=== PATIENT | female | born 1990 | race Caucasian/White ===

== ENCOUNTER 2021-11-26 14:59 | Emergency (ER) | payer BC, SELFPAY ==
--- NOTE | ~2021-11-26 | CT_ITS ---
EXAMINATION: CT SOFT TISSUE NECK WITH CONTRAST CLINICAL INFORMATION: Pharyngitis. Assess for peritonsillar abscess. COMPARISON: There are no prior studies available for comparison. TECHNIQUE: Following the intravenous administration of 60 mL of Omnipaque 350 intravenous contrast, helical imaging was performed in the axial plane with generation of coronal and sagittal reformatted images. This CT examination was performed using dose optimization techniques as appropriate, variously including the following: *Automated exposure control *Adjustment of mA and/or kV according to patient size (this includes techniques or standardized protocols for targeted exams where dose is matched to indication/reason for exam; i.e. extremities or head) *Use of iterative reconstruction technique DLP: 551 mGy-cm FINDINGS: There is no cervical lymphadenopathy; there are small lymph nodes at multiple levels in the neck bilaterally. The parotid glands are homogeneous in attenuation; there is accessory parotid tissue over the right masseter muscle.. The submandibular glands are normal. There is slight asymmetric fullness of the left palatine tonsils, but no focal areas of fluid or abnormal enhancement are demonstrated. The laryngeal structures are normal. The parapharyngeal fat is preserved. The carotid sheath vasculature opacifies normally. No extra mucosal soft tissue mass or fluid collection is seen. No retropharyngeal fluid collection is seen. The thyroid gland is normal. The superior mediastinum is unremarkable. There is a 3 mm subpleural nodule in the right upper lobe laterally (image [id number], series 3). The mastoid air cells are well-aerated. There is mucosal thickening in the anterior right sphenoid sinus. The temporomandibular joints are normal. There is a small root fragment in the region of the right maxillary 3rd molar tooth. There are no periapical lucencies. There is a right nasal alar ring. There is reversal of normal cervical lordosis which is nonspecific. No acute osseous abnormalities are seen. The imaged portions of the brain parenchyma are unremarkable. CT/CT soft tissue neck w con IMPRESSION: 1. There is slight asymmetric fullness of the palatine tonsils, more prominent on the left, but there is no evidence of a peritonsillar abscess. There is no cervical lymphadenopathy. 2. There is a 3 mm nodule in the right upper lobe. Various management parameters for solitary pulmonary nodules are in the literature. According to the UPDATED 2017 Fleischner Society recommendations, the advised follow-up imaging for solid nodules < 6 mm is: LOW RISK PATIENT: No routine follow-up. HIGH RISK PATIENT: Optional CT at 12 months. Reference: Guidelines for Management of Incidental Pulmonary Nodules Detected on CT Images: From the Fleischner Society 2017.
[2021-11-26 15:45] VITALS: BP 103/71; PULSE 81; RESP 20; TEMP 36.4; O2SAT 95; BMI 29.8
--- NOTE | 2021-11-26 16:49 | ED_ITS ---
HPI - URI/Sore Throat General Chief Complaint: Extremity Problem Stated Complaint: covid 2 wks ago on prednisone feels throat closing Time Seen by Provider: 11/26/21 16:22 Source: patient Mode of arrival: ambulatory Limitations: no limitations History of Present Illness HPI Narrative: Patient is a 31-year-old female presenting to the emergency department for evaluation of throat closing sensation. She reports that 2 weeks ago she tested positive for COVID-19. She began feeling better soon after. Six days ago she developed a significant cough, she was given a medrol dose pack, states that she completed that 3 days ago. She has noticed swelling to her bilateral feet since takingMedrol. In addition over the past few days she has had a sore throat, pain with swallowing, and feeling like her throat is closing. Denies fevers, chills, dizziness, lightheadedness, neck pain, neck stiffness, chest pain, palpitations, shortness of breath, difficulty breathing, leg pain, leg redness, leg/calf swelling, numbness or tingling of the extremities. Related Data Previous Rx's Medication Instructions Recorded amoxicillin 500 mg tablet 500 mg PO BID 10 days #20 tabs 11/26/21 Allergies Allergy/AdvReac Type Severity Reaction Status Date / Time oxycodone [From PERCOCET] Allergy Unknown VOMITING Unverified 02/15/20 19:32 Review of Systems Review of Systems: Constitutional: No fever. No chills. No weakness. No fatig ue. Eye: No swelling. No redness. ENT: Positive sore throat. Positive odynophagia. No rhinorrhea. No nasal congestion. No difficulty swallowing. Skin: No rash. No itching. Cardiovascular: No chest pain. No chest pressure. No palpitations. Positive pedal edema. Respiratory: No shortness of breath. Positive cough. No sputum production. Gastrointestinal: No anorexia. No nausea. No vomiting. No diarrhea. No abdominal pain. Genitourinary: No burning micturition. No urinary frequency. No incontinence. Neurologic: No headache. No dizziness. No pre-syncope/ syncope. No unilateral weakness. No numbness. No tingling. Musculoskeletal: No muscle pain. No back pain. No joint pain. No stiffness. Lymphatics: No enlarged lymph nodes. Endocrine: No reports of sweating. No cold or heat intolerance. No polyuria. No polydipsia. Yes all other systems are reviewed and are negative [facility] Past Medical History Attestation statement: The following information was validated with the patient. Source: old records reviewed Social History Social History Advance Directives: No Advance Directives Information Provided: No Physical Exam Vital Signs: Vital Signs: Last Vital Signs Temp 97.6 F 11/26/21 15:45 Pulse 81 11/26/21 15:45 Resp 20 11/26/21 15:45 BP 103/71 11/26/21 15:45 Pulse Ox 95 11/26/21 15:45 O2 Del Method 11/26/21 15:45 BMI result Body Mass Index 29.8 Vital signs have been reviewed as normal and appeared to be correct. Blood pressure normal.? Heart rate normal.? Respiration rate normal. Temperature normal.? Oxygen saturation normal. Appearance: Alert.?Oriented to person, place and time. No acute distre ss.?Normal affect. Head: Normocephalic, atraumatic. No head, sinus or TMJ tenderness.? Eyes: Sclera white, conjunctiva pink. PERRL, 3 mm bilaterally. Ears: Bilateral ear canals clear, TM visible with good cone of light.? Nose: Nasal mucosa pink and moist with midline septum, nares patent bilaterally.? Mouth/ Throat: Oral mucosa pink and moist without lesions. Pharynx without exudate, tonsils asymmetric left +4+, right +1, uvula midlin. No trismus. Palate soft. Neck: Normal inspection.? Neck supple.??No lymphadenopathy CVS: Heart sounds normal. Normal heart rate and rhythm.? Pulses normal. No JVD?? Respiratory: No respiratory distress.? Lung sounds clear to auscultation bilaterally?? Abdomen: Soft and non-tender. Normoactive bowel sounds. ? Skin: Skin warm and dry.? Normal skin color.? Extremities: 1+ pitting bilateral pedal edema? No calf ttp? Neuro: Moves all extremities spontaneously. Sensation intact bilaterally. No focal neuro deficits. Ambulates with normal steady gait. Course Course Course Narrative: Patient is a 31-year-old male no significant past medical history presenting to emergency of sore throat, and pedal edema. On physical exam, tonsils are asymmetric and erythematous, concerning for possible peritonsillar abscess, will obtain CT of the soft tissue neck. She is overall well appearing, hemodynamically stable. Will obtain CBC, BMP, group a strep testing, Monospot to exclude mononucleosis, has benign abdominal exam. Oral dexamethasone for pain. Reevaluation(s) Reevaluation #1: Group a strep testing negative. Owsley screen negative. CBC reveals mild leukocytosis 12.1 no left shift. BMP overall unremarkable, mildly elevated transaminases; AST [address] of the neck reveals evidence of peritonsillar or cervical lymphadenopathy. Given degree of swelling discomfort, and recent viral infection, concern for superimposed bacterial infection, will treat with antibiotics On CT there was an Incidental finding of a 3 mm right upper lobe pulmonary nodule. Edema is dependent, improves with elevation may be secondary to corticosteroid use, no evidence of congestive heart failure, not consistent with DVT or cellulitis. Discussed these findings with patient, she verbalizes understanding and will contact her primary care provider to schedule follow-up appointment. Time: 18:59 MDM - URI/Sore Throat Medical Records Attestation: I reviewed the patient's medical records. Lab Data Attestation: I reviewed the patient's lab results. Result diagrams: 11/26/21 17:01 11/26/21 17:01 Labs: Lab Results 11/26/21 11/26/21 11/26/21 Range/Units 17:01 17:01 17:01 WBC 12.1 H (4.8-10.8) X10*3/uL RBC 4.92 (4.20-5.50) X10*6/uL Hgb 15.5 (12.0-16.0) g/dl Hct 45.3 (37.0-47.0) % MCV 92.1 (80.0-98.0) fL MCH 31.5 (27.0-33.0) pg MCHC 34.2 (31.0-35.0) g/dl RDW 12.2 (11.0-16.0) % Plt Count 260 (160-400) X10*3/uL MPV 10.6 (9.4-12.3) fL Immature Gran % (Auto) 2.7 H (0.0-0.4) % Neut % (Auto) 66.7 (45-73) % Lymph % (Auto) 20.5 (20-40) % Owsley % (Auto) 7.5 (2-11) % Eos % (Auto) 2.4 (0-4) % Baso % (Auto) 0.2 (0-2) % Lymph # (Auto) 2.5 (1.2-4.9) X10*3/uL Owsley # (Auto) 0.9 (0.1-1.2) X10*3/uL Eos # (Auto) 0.3 (0.0-0.4) X10*3/uL Baso # (Auto) 0.0 (0.0-0.2) X10*3/uL Abs Immat Gran (auto) 0.32 H (0.00-0.03) X10*3/uL Absolute Neuts (auto) 8.1 (2.0-8.3) x10*3/uL Absolute Nucleated RBC 0.000 (0.0-0.012) X10*3/uL Nucleated RBC % (auto) 0.0 (0.0-0.2) /100WBC Sodium 140 (135-145) mmol/L Potassium 4.6 (3.3-5.1) mmol/L Chloride 102 (96-108) mmol/L Carbon Dioxide 29 (22-29) mmol/L Anion Gap 14 (12-20) BUN 9 (9-16) mg/dL Creatinine 0.76 (0.5-1.4) mg/dL Estim Creat Clear Calc 115.9 Estimated GFR > 60 Random Glucose 85 (60-115) mg/dL Calcium 9.3 (8.4-10.2) mg/dL Total Bilirubin 0.4 (0.0-1.0) mg/dL AST 41 H (5-31) U/L ALT 81 H (0-31) U/L Alkaline Phosphatase 86 (39-117) U/L Total Protein 6.9 (6.5-8.0) g/dL Albumin 4.0 (3.5-5.0) g/dL Monoscreen (Negative) S. pyogenes GrpA BIENVENIDO Negative (Negative) 11/26/21 Range/Units 17:01 WBC (4.8-10.8) X10*3/uL RBC (4.20-5.50) X10*6/uL Hgb (12.0-16.0) g/dl Hct (37.0-47.0) % MCV (80.0-98.0) fL MCH (27.0-33.0) pg MCHC (31.0-35.0) g/dl RDW (11.0-16.0) % Plt Count (160-400) X10*3/uL MPV (9.4-12.3) fL Immature Gran % (Auto) (0.0-0.4) % Neut % (Auto) (45-73) % Lymph % (Auto) (20-40) % Owsley % (Auto) (2-11) % Eos % (Auto) (0-4) % Baso % (Auto) (0-2) % Lymph # (Auto) (1.2-4.9) X10*3/uL Owsley # (Auto) (0.1-1.2) X10*3/uL Eos # (Auto) (0.0-0.4) X10*3/uL Baso # (Auto) (0.0-0.2) X10*3/uL Abs Immat Gran (auto) (0.00-0.03) X10*3/uL Absolute Neuts (auto) (2.0-8.3) x10*3/uL Absolute Nucleated RBC (0.0-0.012) X10*3/uL Nucleated RBC % (auto) (0.0-0.2) /100WBC Sodium (135-145) mmol/L Potassium (3.3-5.1) mmol/L Chloride (96-108) mmol/L Carbon Dioxide (22-29) mmol/L Anion Gap (12-20) BUN (9-16) mg/dL Creatinine (0.5-1.4) mg/dL Estim Creat Clear Calc Estimated GFR Random Glucose (60-115) mg/dL Calcium (8.4-10.2) mg/dL Total Bilirubin (0.0-1.0) mg/dL AST (5-31) U/L ALT (0-31) U/L Alkaline Phosphatase (39-117) U/L Total Protein (6.5-8.0) g/dL Albumin (3.5-5.0) g/dL Monoscreen Negative (Negative) S. pyogenes GrpA BIENVENIDO (Negative) Imaging Data CT neck: Radiologist's impression: CT/CT soft tissue neck w con IMPRESSION: 1. There is slight asymmetric fullness of the palatine tonsils, more prominent on the left, but there is no evidence of a peritonsillar abscess. There is no cervical lymphadenopathy. ? 2. There is a 3 mm nodule in the right upper lobe. Various management parameters for solitary pulmonary nodules are in the literature. According to the UPDATED 2017 Fleischner Society recommendations, the advised follow-up imaging for solid nodules < 6 mm is: ?? LOW RISK PATIENT: No routine follow-up. ?? HIGH RISK PATIENT: Optional CT at 12 months. Discharge Plan Discharge Clinical Impression: Pharyngitis Patient Disposition: Home, Self-Care Instructions: Pharyngitis (ED) Additional Instructions: You have been given a new prescription for an antibiotic, please complete this entire course. As we discussed, the CT of your neck did not reveal any evidence of a peritonsillar abscess. However, there was an incidental finding of a 3 mm nodule in the your right upper lobe of your lung. Given that you do have a history of cigarette smoking, you will likely need a repeat CT scan within 12 months. Please contact your primary care provider to make them aware of this finding. Follow-up with your primary care provider regarding her sore throat as needed. Return to the emergency department with any new or worsening symptoms or concerns Prescriptions: New amoxicillin 500 mg tablet 500 mg PO BID 10 Days Qty: 20 0RF Referrals: Kamaljit Ryan NP [Primary Care Provider] -
[2021-11-26 17:09] LABS: MANUAL DIFF FLAG NO
[2021-11-26 17:22] LABS: Basophils Percent Auto 0.2 % (0-2); Eosinophils Absolute Auto 0.3 X10*3/uL (0.0-0.4); Eosinophils Percent Auto 2.4 % (0-4); Hematocrit 45.3 % (37.0-47.0); Hemoglobin 15.5 g/dl (12.0-16.0); Imm Gran Abs Auto 0.32 X10*3/uL (0.00-0.03); Imm Gran Pct Auto 2.7 % (0.0-0.4); Lymphocytes Absolute Auto 2.5 X10*3/uL (1.2-4.9); Lymphocytes Percent Auto 20.5 % (20-40); Mean Corpuscular HGB Conc 34.2 g/dl (31.0-35.0); Mean Corpuscular Hemoglobin 31.5 pg (27.0-33.0); Mean Corpuscular Volume 92.1 fL (80.0-98.0); Mean Platelet Volume 10.6 fL (9.4-12.3); Monocytes Absolute Auto 0.9 X10*3/uL (0.1-1.2); Monocytes Percent Auto 7.5 % (2-11); Neutrophils Absolute Auto 8.1 x10*3/uL (2.0-8.3); Neutrophils Percent Auto 66.7 % (45-73); Platelet Count 260 X10*3/uL (160-400); Red Blood Count 4.92 X10*6/uL (4.20-5.50); Red Cell Distribution Width 12.2 % (11.0-16.0); White Blood Count 12.1 X10*3/uL (4.8-10.8)
[2021-11-26 17:28] LABS: Monotest Negative (Negative)
[2021-11-26 17:34] LABS: Strep A Nucleic Acid Negative (Negative)
[2021-11-26 17:38] LABS: Alanine Aminotransferase 81 U/L (0-31); Alkaline Phosphatase 86 U/L (39-117); Anion Gap 14 (12-20); Aspartate Amino Transferase 41 U/L (5-31); Bilirubin Total 0.4 mg/dL (0.0-1.0); Blood Urea Nitrogen 9 mg/dL (9-16); Calcium 9.3 mg/dL (8.4-10.2); Carbon Dioxide 29 mmol/L (22-29); Chloride 102 mmol/L (96-108); Creatinine Clr Calc Pharmacy 115.9; Estimated Glomerular Filt Rate > 60; Glucose Random 85 mg/dL (60-115); Potassium 4.6 mmol/L (3.3-5.1); Sodium 140 mmol/L (135-145); Total Protein 6.9 g/dL (6.5-8.0)
[2021-11-26] MEDS: dexAMETHasone sod phosphate 10 MG/ML VIAL PO (17:38)
[2021-11-26] MEDS: iohexoL 350 MG/ML 100 ML INFUS..BTL IV (18:13)
== END 2021-11-26 19:26 | disposition home or self-care (01) ==
PROVIDERS: Nurse Practitioner Family; Emergency Provider Emergency Medicine; PCP Nurse Practitioner Primary Care
DX: J02.9 Acute pharyngitis, unspecified (principal); R60.0 Localized edema; R91.8 Other nonspecific abnormal finding of lung field; R91.1 Solitary pulmonary nodule; Z87.891 Personal history of nicotine dependence; Z86.16 Personal history of COVID-19
CPT/HCPCS: 36415; 70491; 80053; 85025; 86308; 87651; 99283; 99284; J1100; Q9967

== ENCOUNTER 2021-11-30 09:22 | Emergency (ER) | payer BC, SELFPAY ==
--- NOTE | 2021-11-30 | ECG_ITS ---
Test Reason : CP Blood Pressure : / mmHG Vent. Rate : 104 BPM Atrial Rate : 104 BPM P-R Int : 122 ms QRS Dur : 082 ms QT Int : 320 ms P-R-T Axes : 017 006 -01 degrees QTc Int : 420 ms Sinus tachycardia Otherwise normal ECG When compared with ECG of 22-JAN-2018 12:34, No significant change was found Referred By: Generic ED Physician Electronically Signed By:JOLIE BULLOCK
[2021-11-30 11:26] VITALS: BP 131/90; PULSE 116; RESP 18; TEMP 36.8; O2SAT 98; BMI 29.7
== END 2021-11-30 14:43 | disposition left against medical advice (07) ==
PROVIDERS: Emergency Provider Emergency Medicine; PCP Nurse Practitioner Primary Care
DX: R07.89 Other chest pain (principal)
CPT/HCPCS: 93005; 99281; 99283

== ENCOUNTER 2023-09-26 09:03 | Emergency (ER) | payer BC, SELFPAY ==
--- NOTE | ~2023-09-26 | CT_ITS ---
EXAMINATION: CTA head and neck with and without contrast CLINICAL INFORMATION: Headache, neck pain, history of chiropractic adjustment COMPARISON: None available. TECHNIQUE: Test bolus sequences followed by intravenous administration of 70 mL of Omnipaque 350 contrast. Helical imaging was performed in the axial plane from the skull vertex to the thoracic inlet. Delayed postcontrast imaging of the head was also performed. The data was processed at the senior cytotechnologist workstation for generation of MIP sequences. Angled MIPs and volume rendered reformatted images were also generated at an offline 3D workstation. Stenoses are assessed in accordance with NASCET criteria unless otherwise indicated. This CT examination was performed using dose optimization techniques as appropriate, variously including the following: *Automated exposure control *Adjustment of mA and/or kV according to patient size (this includes techniques or standardized protocols for targeted exams where dose is matched to indication/reason for exam; i.e. extremities or head) *Use of iterative reconstruction technique DLP: 1504 mGy-cm FINDINGS: CTA NECK: Three-vessel aortic arch. The innominate and bilateral subclavian arteries are patent. The origins and cervical segments of the common carotid arteries as well as the common carotid artery bifurcations are patent bilaterally. The cervical segments of the internal carotid arteries are also patent bilaterally. Nondominant right vertebral artery. The origins and cervical segments of the vertebral arteries are patent bilaterally. No hemodynamically significant stenosis, dissection, or aneurysm. The visualized branches of the external carotid arteries are unremarkable. CTA HEAD: Anterior circulation: The petrous, cavernous, supraclinoid segments of the internal carotid arteries are patent bilaterally. The major branches of the anterior and middle cerebral arteries as well as the anterior communicating artery complex are patent. No large vessel occlusion, saccular aneurysm, or dissection. Posterior circulation: The intracranial vertebral arteries are patent bilaterally. The basilar artery is normal in course and caliber. The posterior cerebral and superior cerebellar arteries arise normally from the basilar summit. No aneurysm. On delayed imaging, the venous structures demonstrate normal contrast opacification. No filling defect. No abnormal intraparenchymal enhancement. Soft tissues: No suspicious neck mass or cervical adenopathy. Lungs: Clear. Bones: No acute osseous abnormality. No lytic or blastic osseous lesions. CT/CT angio head neck IMPRESSION: CTA head demonstrates no large vessel occlusion, saccular aneurysm, or dissection. CTA neck demonstrates no hemodynamically significant stenosis, dissection, or aneurysm.
--- NOTE | ~2023-09-26 | CT_ITS ---
EXAMINATION: CT HEAD WITHOUT CONTRAST CLINICAL INFORMATION: Left-sided weakness headache COMPARISON: None available. TECHNIQUE: Contiguous axial imaging was performed from the skull base to vertex without intravenous administration of contrast. This CT examination was performed using dose optimization techniques as appropriate, variously including the following: *Automated exposure control *Adjustment of mA and/or kV according to patient size (this includes techniques or standardized protocols for targeted exams where dose is matched to indication/reason for exam; i.e. extremities or head) *Use of iterative reconstruction technique DLP: 714 mGy-cm FINDINGS: There is no evidence of acute intracranial hemorrhage or territorial infarction. No abnormal mass effect or midline shift is seen. Trevizo to white matter differentiation is well preserved. No extra-axial fluid collections are identified. The ventricles are normal in size. There is no abnormal attenuation within the brain parenchyma. The osseous structures and soft tissues are normal. The mastoid air cells and visualized portions of the paranasal sinuses are well aerated. CT/CT head/brain wo IV con IMPRESSION: No acute intracranial pathology.
[2023-09-26 09:05] VITALS: BP 150/99; PULSE 103; RESP 16; TEMP 36.4; O2SAT 100; BMI 30.4
[2023-09-26 09:20] LABS: MANUAL DIFF FLAG NO
[2023-09-26 09:23] LABS: Basophils Percent Auto 0.5 % (0-2); Eosinophils Absolute Auto 0.1 X10*3/uL (0.0-0.4); Eosinophils Percent Auto 0.8 % (0-4); Hematocrit 45.5 % (37.0-47.0); Hemoglobin 15.3 g/dl (12.0-16.0); Imm Gran Abs Auto 0.05 X10*3/uL (0.00-0.03); Imm Gran Pct Auto 0.6 % (0.0-0.4); Lymphocytes Absolute Auto 1.8 X10*3/uL (1.2-4.9); Lymphocytes Percent Auto 22.1 % (20-40); Mean Corpuscular HGB Conc 33.6 g/dl (31.0-35.0); Mean Corpuscular Hemoglobin 32.3 pg (27.0-33.0); Mean Platelet Volume 9.9 fL (9.4-12.3); Monocytes Absolute Auto 0.5 X10*3/uL (0.1-1.2); Monocytes Percent Auto 5.9 % (2-11); Neutrophils Absolute Auto 5.9 x10*3/uL (2.0-8.3); Neutrophils Percent Auto 70.1 % (45-73); Platelet Count 256 X10*3/uL (160-400); Red Blood Count 4.74 X10*6/uL (4.20-5.50); Red Cell Distribution Width 12.5 % (11.0-16.0); White Blood Count 8.3 X10*3/uL (4.8-10.8)
[2023-09-26 09:36] LABS: Anion Gap 13 (12-20); Blood Urea Nitrogen 16 mg/dL (9-16); Calcium 9.9 mg/dL (8.4-10.2); Carbon Dioxide 27 mmol/L (22-29); Chloride 103 mmol/L (96-108); Creatinine Clr Calc Pharmacy 106.4; Estimated Glomerular Filt Rate > 60; Glucose Random 104 mg/dL (60-115); Potassium 4.4 mmol/L (3.3-5.1); Sodium 139 mmol/L (135-145)
--- NOTE | 2023-09-26 09:57 | ED.NEUROSD ---
HPI - Neuro Symptoms/Deficit General Chief Complaint: Headache Stated Complaint: Numbness L side, blurry vision Time Seen by Provider: 09/26/23 09:47 Source: patient and family Mode of arrival: ambulatory Limitations: no limitations History of Present Illness HPI Narrative: 33 yo female with no significant medical history presents to the ER for evaluation of 6 weeks of intermittent but worsening episodes of left sided facial numbness, left arm heaviness, word finding difficulty, dizziness and bilateral eye fatigue/strain. She reports over the last 1.5 months she has been having increasing in frequent of her episodes, worst today and yesterday. She reports intermittently having a frontal headache and today is having a posterior headache. No weakness, fevers, chills, N/V. She recently had a head cold and had some left ear pain which is improved. No tinnitus. No history of episodes like this in the past. Onset (ago): week(s) Location: speech, left face, left arm and ataxia History of same: No Severity: moderate Quality: numb and intermittent Relieving factors: rest Exacerbating factors: none Context: gradual onset On Anticoagulants: No Treatments Prior to Arrival: none Related Data Previous Rx's ?Medication ?Instructions ?Recorded amoxicillin 500 mg tablet 500 mg PO BID 10 days #20 tabs 11/26/21 meclizine 25 mg tablet 25 mg PO BID PRN dizziness #14 tabs 09/26/23 Allergies Allergy/AdvReac Type Severity Reaction Status Date / Time oxycodone [From PERCOCET] Allergy Unknown VOMITING Verified 09/26/23 09:05 Review of Systems Review of Systems: Yes all other systems are reviewed and are negative [facility] Social History Social History Advance Directives: No Advance Directives Information Provided: Yes Do you have a plan to hurt others: No Plan Physical Exam Vital Signs: Vital Signs: Last Vital Signs Temp 97.9 F 09/26/23 14:00 Pulse 61 09/26/23 14:00 Resp 17 09/26/23 14:00 BP 105/70 09/26/23 14:00 Pulse Ox 98 09/26/23 14:00 O2 Del Method Room Air 09/26/23 14:00 BMI result Body Mass Index 30.4 Appearance: Alert. Oriented X3. No acute distress. Head: normocephalic, atraumatic. Eyes: Pupils equal, round and reactive to light. No nystagmus. EOMI. Normal bilateral TMs. ENT: Pharynx normal. No tonsillar swelling or exudate. Neck: Normal inspection. Neck supple. Mild tenderness at the occiput centrally. CVS: Normal heart rate and rhythm. Pulses normal. Respiratory: No respiratory distress. Breath sounds normal. Abdomen: Soft and nontender. +BS x4 Skin: Skin warm and dry. Normal skin color. Normal skin turgor. No rashes. Extremities: No lower extremity edema. No joint swelling. Neuro/psych: Oriented X 3. No motor deficit. No sensory deficit. CN II-XII intact. Normal speech and cognition. Steady gait. NIH 0 Medications Administered Discontinued Medications Generic Name Dose Route Start Last Admin Trade Name Freq PRN Reason Stop Dose Admin Iohexol 70 ml 09/26/23 11:53 09/26/23 11:53 Iohexol 350 Mg/Ml 100 Ml Infus..Btl IV 09/26/23 11:54 70 ml ONCE ONE Administration Medical Decision Making Medical Decision Making [facility] Narrative: 33 y/o female otherwise healthy presenting with transient episodes of left-sided facial numbness, left arm heaviness, word-finding difficulty, balance issues, mild headaches for the last several weeks. Episodes of becoming more frequent. On arrival to the ER she is hypertensive 150/99. no hx HTN. Her neuro exam is nonfocal. she reports very mild frontal headache and posterior neck pain. she follows w/ a chiropractor. labs were normal. inflammatory markers normal. given her chiropractor history a CTA head/neck was done which was normal. her symptoms are most c/w atypical migraine. no severe headache at this time case d/w Dr. Figueredo. stable for d/c home with PCP and neurology follow up. Differential Diagnosis Differential Diagnoses: The differential diagnosis associated with the presentation includes atypical migraine, MS, dissection, TIA, stroke, partial complex seizure, vertigo, brain tumor Admission/Observation Consideration of admission/observation: Escalation of care including admission/observation considered Lab Data [facility] Lab Attestation statement: I reviewed the patient's lab results. 09/26/23 09:16 09/26/23 09:16 Labs: Lab Results 09/26/23 Range/Units 09:16 WBC 8.3 (4.8-10.8) X10*3/uL RBC 4.74 (4.20-5.50) X10*6/uL Hgb 15.3 (12.0-16.0) g/dl Hct 45.5 (37.0-47.0) % MCV 96.0 (80.0-98.0) fL MCH 32.3 (27.0-33.0) pg MCHC 33.6 (31.0-35.0) g/dl RDW 12.5 (11.0-16.0) % Plt Count 256 (160-400) X10*3/uL MPV 9.9 (9.4-12.3) fL Immature Gran % (Auto) 0.6 H (0.0-0.4) % Neut % (Auto) 70.1 (45-73) % Lymph % (Auto) 22.1 (20-40) % Wythe % (Auto) 5.9 (2-11) % Eos % (Auto) 0.8 (0-4) % Baso % (Auto) 0.5 (0-2) % Lymph # (Auto) 1.8 (1.2-4.9) X10*3/uL Wy[place] # (Auto) 0.5 (0.1-1.2) X10*3/uL Eos # (Auto) 0.1 (0.0-0.4) X10*3/uL Baso # (Auto) 0.0 (0.0-0.2) X10*3/uL Abs Immat Gran (auto) 0.05 H (0.00-0.03) X10*3/uL Absolute Neuts (auto) 5.9 (2.0-8.3) x10*3/uL Absolute Nucleated RBC 0.000 (0.0-0.012) X10*3/uL Nucleated RBC % (auto) 0.0 (0.0-0.2) /100WBC ESR 8 (0-20) MM/HR Sodium 139 (135-145) mmol/L Potassium 4.4 (3.3-5.1) mmol/L Chloride 103 (96-108) mmol/L Carbon Dioxide 27 (22-29) mmol/L Anion Gap 13 (12-20) BUN 16 (9-16) mg/dL Creatinine 0.82 (0.5-1.4) mg/dL Estim Creat Clear Calc 106.4 Estimated GFR > 60 Random Glucose 104 (60-115) mg/dL Calcium 9.9 D (8.4-10.2) mg/dL C-Reactive Protein 0.22 (< or = 0.50) mg/dL Independent Interpretation I performed an independent interpretation of an: CT Scan Interpretation: No brain edema or bleed appreciated, agree with radiology read Radiology Impression Discussion of test interpretation with radiology: I have reviewed the radiologist's reading. Radiologist Impression: EXAMINATION: CTA head and neck with and without contrast CLINICAL INFORMATION: Headache, neck pain, history of chiropractic adjustment COMPARISON: None available. TECHNIQUE: Test bolus sequences followed by intravenous administration of 70 mL of Omnipaque 350 contrast. Helical imaging was performed in the axial plane from the skull vertex to the thoracic inlet. Delayed postcontrast imaging of the head was also performed. The data was processed at the staff nuclear medicine technologist workstation for generation of MIP sequences. Angled MIPs and volume rendered reformatted images were also generated at an offline 3D workstation. Stenoses are assessed in accordance with NASCET criteria unless otherwise indicated. This CT examination was performed using dose optimization techniques as appropriate, variously including the following: *Automated exposure control *Adjustment of mA and/or kV according to patient size (this includes techniques or standardized protocols for targeted exams where dose is matched to indication/reason for exam; i.e. extremities or head) *Use of iterative reconstruction technique DLP: 1504 mGy-cm FINDINGS: CTA NECK: Three-vessel aortic arch. The innominate and bilateral subclavian arteries are patent. The origins and cervical segments of the common carotid arteries as well as the common carotid artery bifurcations are patent bilaterally. The cervical segments of the internal carotid arteries are also patent bilaterally. Nondominant right vertebral artery. The origins and cervical segments of the vertebral arteries are patent bilaterally. No hemodynamically significant stenosis, dissection, or aneurysm. The visualized branches of the external carotid arteries are unremarkable. CTA HEAD: Anterior circulation: The petrous, cavernous, supraclinoid segments of the internal carotid arteries are patent bilaterally. The major branches of the anterior and middle cerebral arteries as well as the anterior communicating artery complex are patent. No large vessel occlusion, saccular aneurysm, or dissection. Posterior circulation: The intracranial vertebral arteries are patent bilaterally. The basilar artery is normal in course and caliber. The posterior cerebral and superior cerebellar arteries arise normally from the basilar summit. No aneurysm. On delayed imaging, the venous structures demonstrate normal contrast opacification. No filling defect. No abnormal intraparenchymal enhancement. Soft tissues: No suspicious neck mass or cervical adenopathy. Lungs: Clear. Bones: No acute osseous abnormality. No lytic or blastic osseous lesions. CT/CT angio head neck IMPRESSION: CTA head demonstrates no large vessel occlusion, saccular aneurysm, or dissection. CTA neck demonstrates no hemodynamically significant stenosis, dissection, or aneurysm. Independent Historian Clinical information obtained from an independent historian. History obtained from or confirmed by: Parent External Record Review External record reviewed: Outpatient record, Prior outpatient labs and Prior outpatient radiology Tests considered The following testing was considered but not selected: MRI considered, no emergent need for this to be done today, can follow-up as an outpatient Prescription Management I considered prescription management with: Pain Medication Critical Care Time Critical Care Time Critical Care Time: No Discharge Plan Discharge Clinical Impression: Headache, Dizziness Patient Disposition: Home, Self-Care Instructions: Migraine Headache (ED), Lightheadedness (ED) Additional Instructions: Your lab workup today was unremarkable, including normal inflammatory markers. Your CT scans were normal Your blood pressure with elevated - follow up with your doctor Recommend following up with your PCP and Neurology as soon as possible. If you develop new or worsening symptoms call 911 or come back to the ER for further evaluation. EXAMINATION: CTA head and neck with and without contrast CLINICAL INFORMATION: Headache, neck pain, history of chiropractic adjustment COMPARISON: None available. FINDINGS: CTA NECK: Three-vessel aortic arch. The innominate and bilateral subclavian arteries are patent. The origins and cervical segments of the common carotid arteries as well as the common carotid artery bifurcations are patent bilaterally. The cervical segments of the internal carotid arteries are also patent bilaterally. Nondominant right vertebral artery. The origins and cervical segments of the vertebral arteries are patent bilaterally. No hemodynamically significant stenosis, dissection, or aneurysm. The visualized branches of the external carotid arteries are unremarkable. CTA HEAD: Anterior circulation: The petrous, cavernous, supraclinoid segments of the internal carotid arteries are patent bilaterally. The major branches of the anterior and middle cerebral arteries as well as the anterior communicating artery complex are patent. No large vessel occlusion, saccular aneurysm, or dissection. Posterior circulation: The intracranial vertebral arteries are patent bilaterally. The basilar artery is normal in course and caliber. The posterior cerebral and superior cerebellar arteries arise normally from the basilar summit. No aneurysm. On delayed imaging, the venous structures demonstrate normal contrast opacification. No filling defect. No abnormal intraparenchymal enhancement. Soft tissues: No suspicious neck mass or cervical adenopathy. Lungs: Clear. Bones: No acute osseous abnormality. No lytic or blastic osseous lesions. CT/CT angio head neck IMPRESSION: CTA head demonstrates no large vessel occlusion, saccular aneurysm, or dissection. CTA neck demonstrates no hemodynamically significant stenosis, dissection, or aneurysm. Prescriptions: New meclizine 25 mg tablet 25 mg PO BID PRN (Reason: dizziness) Qty: 14 0RF No Action amoxicillin 500 mg tablet 500 mg PO BID 10 Days Qty: 20 0RF [place] [facility] [place] [facility] [place] Discharge Date/Time: 09/26/23 14:02 Print Language: Mongolian
[2023-09-26 10:13] LABS: C Reactive Protein 0.22 mg/dL (< or = 0.50)
[2023-09-26 10:50] LABS: Erythrocyte Sedimentation Rate 8 MM/HR (0-20)
[2023-09-26] MEDS: iohexoL 350 MG/ML 100 ML INFUS..BTL 70 ML IV (11:53)
[2023-09-26 14:00] VITALS: BP 105/70; PULSE 61; RESP 17; TEMP 36.6; O2SAT 98
== END 2023-09-26 14:02 | disposition home or self-care (01) ==
PROVIDERS: Physician Assistant; Emergency Provider Student in an Organized Health Care Education/Training Program; PCP Nurse Practitioner Primary Care
DX: R51.9 Headache, unspecified (principal); R42 Dizziness and giddiness
CPT/HCPCS: 36415; 70450; 70496; 70498; 80048; 85025; 85652; 86140; 99282; 99284; Q9967

== ENCOUNTER 2024-02-14 13:00 | Outpatient (AMB) | payer OTHER, SELFPAY ==
--- NOTE | 2024-02-14 13:06 | A.OFFVIS_ITS ---
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 Credit Risk Specialist Required: No Allergies oxycodone [From PERCOCET] Allergy (Unknown, Verified 02/14/24 13:06) VOMITING Medication List - Last Reconciled 02/14/24 by Mone Dang MD etonogestrel-ethinyl estradiol 0.12-0.015 mg/24 hr (NuvaRing) 1 vag ring vaginal Q4W lorazepam 0.5 mg PO DAILY PRN meclizine 25 mg PO BID PRN HPI Comments Details: 33y/o female comes for an episode of headache, blurry vision and left sided numbness in August 2023 . 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 she does not remember more details. her father took her to ER CTA head and CT head were negative. she was given meclizine and referred to neurologist.It lasted the whole day.She still has 1-2 times a month has some tingling in her tooth , feels tired , posterior neck discomfort,nasal congestion and lasts 1-2 hrs she denies any nausea, light or noise sensitivity. No headaches No h/o migraines\ she sees a chiropractor for her sciatica.She denies weakness, diplopia, vertigo etc. she is not sure if she snores, she has poor sleep due to know pain. she also bruxism and uses a mouth guard. [facility] Medical History Arthritis of knee Social History Household Members: Spouse Housing: Apartment Alcohol intake: current Comment: Socially Patient Tobacco Use Status: Former Tobacco user Cigarettes Per Day: 20 Years Smoked: 15 years Physical Exam Vital Signs: Last Vital Signs Pulse 108 H 02/14/24 13:07 Resp 16 02/14/24 13:07 BP 130/86 02/14/24 13:07 Pulse Ox 99 02/14/24 13:07 Oxygen Delivery Method Room Air 02/14/24 13:07 BMI result Body Mass Index 30.7 Const General: cooperative, healthy appearing and comfortable Nutritional Appearance: overweight Orientation/consciousness: patient oriented x3 Eyes Pupils: Equal, round and reactive pupils present Neuro Other: masseter hypertrophy , moe TMJ tightness with restricted mouth opening Mallamaptti grade 4 General: patient oriented x3, gait normal, tone normal and moves all extremities Cranial nerves: Yes Facial sensation intact/muscles of mastication intact, Yes Equal, round and reactive pupils present, Yes Bilaterally intact EOM present, Yes Nystagmus not present, Yes Normal facial strength present and Yes Midline tongue present Cognition (Neuro): normal cognition Gait exam (Neuro): Normal gait present Motor exam (neuro): 5/5 motor strength present throughout, Normal motor muscle tone present throughout and Motor abnormalities not present Deep tendon reflexes (DTR's): Right triceps reflex intensity grade: 1+, Left triceps reflex intensity grade: 1+, Rt Biceps (C5, C6): 1+, Left biceps reflex intensity grade: 1+, Right brachioradialis reflex intensity grade: 1+, Left brachioradialis reflex intensity grade: 1+, Right patellar reflex intensity grade: 1+ and Left patellar reflex intensity grade: 1+ Coordination: [id number] test normal Assessment & Plan Assessment & Plan (1) Numbness and tingling sensation of skin: Code(s): R20.0 - Anesthesia of skin; R20.2 - Paresthesia of skin (2) Bruxism: Code(s): F45.8 - Other somatoform disorders Category: Medical (3) Snoring: Code(s): R06.83 - Snoring Category: Medical Plan Episodic tingling in her Teeth and gums could be related to bruxism or trigeminal irritation. I will evaluate her with MRI brain Home sleep test to r/o sleep apnea I will trial her on baclofen 5 mg qhs and magnesium 400mg qhs Orders: Orders MR head/brain wo con Today H53.8 - Other visual disturbances, R20.0 - Anesthesia of skin, R20.2 - Paresthesia of skin, R51.9 - Headache, unspecified RT home sleep study Today F45.8 - Other somatoform disorders, R06.83 - Snoring Medications: New baclofen 5 mg PO BEDTIME 30 tabs 3RF magnesium oxide 400 mg PO BEDTIME 30 tabs 6RF Coding Level of Care Code New Pt Level 4 (06733) Diagnoses Numbness and tingling sensation of skin R20.0; R20.2 Bruxism F45.8 Snoring R06.83
[2024-02-14 13:07] VITALS: BP 130/86; PULSE 108; RESP 16; O2SAT 99; BMI 30.7
== END 2024-02-14 13:40 | disposition home or self-care (01) ==
PROVIDERS: PCP Nurse Practitioner Primary Care; Visit Provider Psychiatry & Neurology Neurology
DX: R20.0 Anesthesia of skin (principal); R20.2 Paresthesia of skin; R06.83 Snoring
CPT/HCPCS: 99204

== ENCOUNTER → 2024-02-14 13:00 | Outpatient (BNVA) | payer OTHER, SELFPAY | PROVIDERS: PCP Nurse Practitioner Primary Care; Visit Provider Psychiatry & Neurology Neurology ==

== ENCOUNTER → 2024-04-05 18:19 | Outpatient (BNV) | payer OTHER, SELFPAY | PROVIDERS: Emergency Provider Emergency Medicine Emergency Medical Services; PCP Nurse Practitioner Primary Care; Visit Provider Internal Medicine Cardiovascular Disease | DX: R07.9 Chest pain, unspecified (principal) | CPT/HCPCS: 93010 ==

== ENCOUNTER 2024-04-05 19:24 | Emergency (ER) | payer OTHER, SELFPAY ==
--- NOTE | ~2024-04-05 | XR_ITS ---
EXAMINATION: XR CHEST CLINICAL INFORMATION: Chest pain COMPARISON: 01/22/2018 TECHNIQUE: 2 views of the chest were obtained. FINDINGS: No significant abnormality is noted involving the heart, lungs, mediastinum, bony thorax or soft tissues. XR/XR chest 2V IMPRESSION: Unremarkable examination. Electronically signed by: Ton Hawley MD 04/05/2024 11:27 PM [facility] [place]
--- NOTE | 2024-04-05 18:19 | ECG_ITS ---
Test Reason : CHEST PAIN Blood Pressure : / mmHG Vent. Rate : 102 BPM Atrial Rate : 102 BPM P-R Int : 142 ms QRS Dur : 086 ms QT Int : 336 ms P-R-T Axes : 049 -01 003 degrees QTc Int : 437 ms Sinus tachycardia Otherwise normal ECG When compared with ECG of 30-NOV-2021 09:22, No significant change was found Referred By: Vero Campbell Electronically Signed By:MARIALUISA MOTT MD
[2024-04-05 19:25] VITALS: BP 134/97; PULSE 95; RESP 18; TEMP 36.5; O2SAT 100; BMI 30.7
--- NOTE | 2024-04-05 19:29 | ED_ITS ---
HPI - Chest Pain General Chief Complaint: Chest Pain Stated Complaint: CP X1HR PER EMS Related Data Home Medications ?Medication ?Instructions ?Recorded ?Confirmed etonogestrel 0.12 mg-ethinyl 1 vag ring vaginal Q4W 02/14/24 02/14/24 estradiol 0.015 mg/24 hr vaginal ring (NuvaRing) lorazepam 0.5 mg tablet 0.5 mg PO DAILY PRN 02/14/24 02/14/24 Previous Rx's ?Medication ?Instructions ?Recorded meclizine 25 mg tablet 25 mg PO BID PRN dizziness #14 tabs 09/26/23 baclofen 5 mg tablet 5 mg PO BEDTIME #30 tabs 02/14/24 magnesium oxide 400 mg PO BEDTIME #30 tabs 02/14/24 Allergies Allergy/AdvReac Type Severity Reaction Status Date / Time oxycodone [From PERCOCET] Allergy Unknown VOMITING Verified 04/05/24 19:26 [facility] Past Medical History Medical History (Updated 04/06/24 @ 00:02 by Merle Stevens) Bruxism Snoring Arthritis of knee Social History Social History Household Members: Spouse Housing: Apartment Alcohol intake: current Comment: Socially Patient Tobacco Use Status: Former Tobacco user Cigarettes Per Day: 20 Years Smoked: 15 years Advance Directives: No Advance Directives Information Provided: No Do you have a plan to hurt others: No Plan Physical Exam 2 Vital Signs: Vital Signs: Last Vital Signs Temp 97.7 F 04/05/24 19:25 Pulse 95 04/05/24 19:25 Resp 18 04/05/24 19:25 BP 134/97 H 04/05/24 19:25 Pulse Ox 100 04/05/24 19:25 O2 Del Method Room Air 04/05/24 19:25 BMI result Body Mass Index 30.7 Course Course Course Narrative: This is a Rapid Medical Examination (RME) performed by Pura Campbell PA-C in triage. Full HPI, ROS, assessment and treatment plan per primary provider in the Main ED. 33 yo female here via EMS from home for eval of left sided intermittent stabbing chest pain since yesterday. radiation down left arm. assoc light headedness. hx of anxiety, this feels different. reoprts increased stressors, her mother passed 2 weeks ago in front of her. Plan: labs, ekg, cxr Reevaluation(s) Reevaluation #1: Patient left the emergency department before myself or any of the other clinicians could review or explain physical exam findings, test results, need or lack there of for additional testing, treatment options, or a treatment plan. Medical Decision Making Lab Data 04/05/24 19:35 04/05/24 19:34 Labs: Lab Results 04/05/24 04/05/24 Range/Units 19:34 19:35 WBC 8.8 (4.8-10.8) X10*3/uL RBC 4.55 (4.20-5.50) X10*6/uL Hgb 14.4 (12.0-16.0) g/dl Hct 41.1 (37.0-47.0) % MCV 90.3 (80.0-98.0) fL MCH 31.6 (27.0-33.0) pg MCHC 35.0 (31.0-35.0) g/dl RDW 12.0 (11.0-16.0) % Plt Count 259 (160-400) X10*3/uL MPV 10.3 (9.4-12.3) fL Immature Gran % (Auto) 0.3 (0.0-0.4) % Neut % (Auto) 67.8 (45-73) % Lymph % (Auto) 23.5 (20-40) % Alpine % (Auto) 6.2 (2-11) % Eos % (Auto) 1.7 (0-4) % Baso % (Auto) 0.5 (0-2) % Lymph # (Auto) 2.1 (1.2-4.9) X10*3/uL Alpine # (Auto) 0.6 (0.1-1.2) X10*3/uL Eos # (Auto) 0.2 (0.0-0.4) X10*3/uL Baso # (Auto) 0.0 (0.0-0.2) X10*3/uL Abs Immat Gran (auto) 0.03 (0.00-0.03) X10*3/uL Absolute Neuts (auto) 6.0 (2.0-8.3) x10*3/uL Absolute Nucleated RBC 0.000 (0.0-0.012) X10*3/uL Nucleated RBC % (auto) 0.0 (0.0-0.2) /100WBC PT 11.3 (10.9-12.4) SEC INR 1.0 (0.9-1.1) Sodium 141 (135-145) mmol/L Potassium 4.3 (3.3-5.1) mmol/L Chloride 105 (96-108) mmol/L Carbon Dioxide 25 (22-29) mmol/L Anion Gap 15 (12-20) BUN 8 L (9-16) mg/dL Creatinine 0.78 (0.5-1.4) mg/dL Estim Creat Clear Calc 112.4 Estimated GFR > 60 Random Glucose 94 (60-115) mg/dL Calcium 10.3 H (8.4-10.2) mg/dL Magnesium 2.0 (1.6-2.6) mg/dL Total Bilirubin 0.3 (0.0-1.0) mg/dL AST 48 H (5-31) U/L ALT 64 H (0-31) U/L Alkaline Phosphatase 50 (39-117) U/L Troponin I High Sens < 2.7 (<3.5-17.0) ng/L Total Protein 7.4 (6.5-8.0) g/dL Albumin 4.2 (3.5-5.0) g/dL Lipase 20 (8-78) U/L Discharge Plan Discharge Clinical Impression: Chest pain Patient Disposition: Left W/O Completing Treatment Prescriptions: No Action meclizine 25 mg tablet 25 mg PO BID PRN (Reason: dizziness) Qty: 14 0RF lorazepam 0.5 mg tablet 0.5 mg PO DAILY PRN etonogestrel-ethinyl estradiol [NuvaRing] 0.12-0.015 mg/24 hr ring 1 vag ring vaginal Q4W Rx Instructions: leave in place for 3 weeks of a 4-week cycle baclofen 5 mg tablet 5 mg PO BEDTIME Qty: 30 3RF magnesium oxide 400 mg magnesium tablet 400 mg PO BEDTIME Qty: 30 6RF Discharge Date/Time: 04/05/24 22:23
[2024-04-05 19:39] LABS: MANUAL DIFF FLAG NO
[2024-04-05 19:46] LABS: Basophils Percent Auto 0.5 % (0-2); Eosinophils Absolute Auto 0.2 X10*3/uL (0.0-0.4); Eosinophils Percent Auto 1.7 % (0-4); Hematocrit 41.1 % (37.0-47.0); Hemoglobin 14.4 g/dl (12.0-16.0); Imm Gran Abs Auto 0.03 X10*3/uL (0.00-0.03); Imm Gran Pct Auto 0.3 % (0.0-0.4); Lymphocytes Absolute Auto 2.1 X10*3/uL (1.2-4.9); Lymphocytes Percent Auto 23.5 % (20-40); Mean Corpuscular Hemoglobin 31.6 pg (27.0-33.0); Mean Corpuscular Volume 90.3 fL (80.0-98.0); Mean Platelet Volume 10.3 fL (9.4-12.3); Monocytes Absolute Auto 0.6 X10*3/uL (0.1-1.2); Monocytes Percent Auto 6.2 % (2-11); Neutrophils Percent Auto 67.8 % (45-73); Platelet Count 259 X10*3/uL (160-400); Red Blood Count 4.55 X10*6/uL (4.20-5.50); White Blood Count 8.8 X10*3/uL (4.8-10.8)
[2024-04-05 19:56] LABS: Alanine Aminotransferase 64 U/L (0-31); Albumin Level 4.2 g/dL (3.5-5.0); Alkaline Phosphatase 50 U/L (39-117); Anion Gap 15 (12-20); Aspartate Amino Transferase 48 U/L (5-31); Bilirubin Total 0.3 mg/dL (0.0-1.0); Blood Urea Nitrogen 8 mg/dL (9-16); Calcium 10.3 mg/dL (8.4-10.2); Carbon Dioxide 25 mmol/L (22-29); Chloride 105 mmol/L (96-108); Creatinine Clr Calc Pharmacy 112.4; Estimated Glomerular Filt Rate > 60; Glucose Random 94 mg/dL (60-115); Lipase 20 U/L (8-78); Potassium 4.3 mmol/L (3.3-5.1); Sodium 141 mmol/L (135-145); Total Protein 7.4 g/dL (6.5-8.0)
[2024-04-05 20:07] LABS: Troponin-I High Sensitivity < 2.7 ng/L (<3.5-17.0)
[2024-04-05 20:16] LABS: Prothrombin Time 11.3 SEC (10.9-12.4)
== END 2024-04-05 22:23 | disposition left against medical advice (07) ==
PROVIDERS: Physician Assistant Medical; Emergency Provider Emergency Medicine Emergency Medical Services; PCP Nurse Practitioner Primary Care
DX: R07.9 Chest pain, unspecified (principal); Z79.899 Other long term (current) drug therapy
CPT/HCPCS: 36415; 71046; 80053; 83690; 83735; 84484; 85025; 85610; 93005; 99283